=== PATIENT | female | born 1995 ===

== ENCOUNTER 2020-11-15 02:07 | Emergency (ER) | payer OTHER ==
[2020-11-15 03:28] LABS: BASOPHIL 0.4 % (0-2); EOSINOPHIL 0 % (0-5); HCT 43.9 % (37.0-47.0); HGB 14.1 g/dl (12.5-16.0); LYMPHOCYTE 12.2 % (15-48); MCH 29.6 pg (25.0-31.0); MCHC 32.1 g/dL (32.0-36.0); MCV 92.2 fL (78.0-100.0); NEUTROPHIL 81.1 % (41-80); NRBC 0; PLT 413 K/uL (150-400); RBC 4.76 M/uL (4.20-5.40); RDW 14.9 % (11.5-14.0)
[2020-11-15 03:31] LABS: BILIRUBIN NEGATIVE (NEGATIVE); BLOOD NEGATIVE Ery/uL (NEGATIVE); CLARITY HAZY (CLEAR); COLOR YELLOW (YELLOW); GLUCOSE (U) NORMAL (NORMAL); LEUKOCYTES TRACE Leu/uL (NEGATIVE); NITRITE NEGATIVE (NEGATIVE); PROTEIN 2+ mg/dL (NEGATIVE); SPECIFIC GRAVITY 1.015 (1.001-1.030); UROBILINOGEN 0.2 mg/dL (0.2-1.0); pH 8.5 (5.0-9.0)
[2020-11-15 03:38] LABS: BACTERIA 1+
[2020-11-15 03:39] LABS: ALBUMIN 4.5 g/dL (3.4-5.0); BILIRUBIN - TOTAL 0.6 mg/dL (0.2-1.0); BUN/CREAT RATIO (CALC) 20.5 RATIO; CREATININE 0.83 mg/dL (0.51-0.95); GLOBULIN (CALCULATION) 4.4 g/dL; SQUAMOUS EPITHELIAL CELLS >50; TOTAL PROTEIN 8.9 g/dL (6.4-8.2)
[2020-11-15] MEDS ORDERED: FLOMAX0.4 MG PO (07:06)
[2020-11-15] MEDS ORDERED: PHENERGAN25 M1 PO (07:06)
[2020-11-15] MEDS ORDERED: PERCOCET 5-3251 EACH PO (07:06)
[2020-11-15] MEDS ORDERED: ROBAXIN750 MG PO (07:06)
[2020-11-15] MEDS ORDERED: VOLTAREN **OUT50 MG PO (07:06)
== END 2020-11-15 07:50 | disposition home or self-care (01) ==
LOC: FER 02:07
PROVIDERS: Emergency Medicine Emergency Medical Services
DX: R10.31 Right lower quadrant pain (principal); R10.11 Right upper quadrant pain; E87.6 Hypokalemia; N20.0 Calculus of kidney; F17.200 Nicotine dependence, unspecified, uncomplicated; K21.9 Gastro-esophageal reflux disease without esophagitis; Z88.0 Allergy status to penicillin; Z79.899 Other long term (current) drug therapy; Z87.59 Personal history of other complications of pregnancy, childbirth and the puerperium
CPT/HCPCS: 36415; 80053; 81001; 83735; 85025; 85379; 87088; J1170; J1885; J2270; J2405; J3360; J3480; J7120

== ENCOUNTER 2020-11-16 00:06 | Emergency (ER) | payer OTHER ==
[~2020-11-16 00:06] MED LIST: FLOMAX0.4 MG PO; PERCOCET 5-3251 EACH PO; PHENERGAN25 M1 PO; ROBAXIN750 MG PO; VOLTAREN **OUT50 MG PO
== END 2020-11-16 00:28 | disposition home or self-care (01) ==
LOC: FER 00:06
DX: N20.0 Calculus of kidney (principal); F17.210 Nicotine dependence, cigarettes, uncomplicated; Z88.0 Allergy status to penicillin
CPT/HCPCS: 99283; J1885